=== PATIENT | female | born 1945 | race Caucasian/White ===

== ENCOUNTER 2016-10-15 19:42 | Outpatient (CLI) | END 2016-10-15 19:43 | LOC: AMBL 19:42 | PROVIDERS: ATTEND Internal Medicine Geriatric Medicine | DX: R25.1 Tremor, unspecified (principal); R00.0 Tachycardia, unspecified; I49.3 Ventricular premature depolarization; R03.0 Elevated blood-pressure reading, without diagnosis of hypertension; I63.9 Cerebral infarction, unspecified ==

== ENCOUNTER 2016-11-07 11:00 | Outpatient (RCR) ==
--- NOTE | 2016-10-27 17:47 | RS.OTEVAL ---
Subjective Date of Note: 10/27/16 Visit #: 1 Date of Evaluation: 10/27/16 Payer Source: MEDICARE Surgery Performed?: No Treatment Diagnosis: Left side weakness and impaired coordination Treatment Side (optional): Left *Precautions: At risk for falls Prior Level of Function.....Patient was independent with: ADL's, Self Care, Work /Vocation, Caregiving, Ambulation/Mobility, Community Integration/Access History of Condition/Mechanism of Injury: On 2016, pt fell backwards out of the kitchen chair and hit her head. Pt was okay she thought and was working at the [employer], and her left hand began to be difficult and then the left leg as well. Pt reports she went to the ER and was told she has a brain bleed that is absorbing. Pt reports she then was put in ICU for 3-4 days and lost her coordination of the left side. Pt reports she received therapy in the hospital for decreased balance. A week ago last Monday, she had a seizure and was hospitalized for 4 more days. Pt's BP is good not. She does not have headaches since she came home on Monday. Pt goes to see Dr. Shah for the hole in her retina which was found before her fall. Pt reports she does seem to have increased agitation with loud noises and has increased sensitivity since the fall. Level of Function: Pt is not able to drive at this time. Pt has impaired coordination and proprioception of the Left Upper extremity and the Left foot. Pt has difficulty carrying things, picking up objects and holding them. Functional Limitations: Self Care, ADL's, Reaching, Lifting, Carrying, Standing , Bending, Ambulation Current Complaints/Gains: Impaired coordination of LUE. Impaired proprioception of LUE. Pt has difficulty holding on to items once she picks them up. Pt has to use her vision to compensate for impaired proprioception. Medical History Medical History: Hypertension Medical History Comments:: Brain bleed from a fall. Diagnostic Testing/Imaging:: CT on 10/26/16, and next CT on 11/16/16. Patient's Goals: To get use of her hand and foot again and return to PLOF. Pain Assessment - Pain Description Pain Location: N/A Other comments regarding pain:: no pain Functional Outcome Measures UE Functional Index: 50 - G Codes & Severity Modifier G Codes: Current G code for Carrying, moving, and handling is 50% or CK. G code Goal is CH Source of G Code score: Carrying, Moving, and Handling Observation - Observation Posture: Normal, Forward Head Handedness: Right Shoulder ROM: Bilaterally WFL's Shoulder Muscle Strength: Right WFL's - Left Shoulder ROM Left Shoulder ROM Limitations: Muscle Weakness - Left Shoulder Strength Left Shoulder Flexion: 4- Good- Left Shoulder Extension: 4- Good- Left Shoulder Abduction: 4- Good- Left Shoulder Adduction: 4- Good- Left Shoulder External Rotation: 4- Good- Left Shoulder Internal Rotation: 4- Good- - Right Shoulder Strength Right Shoulder Flexion: 4+ Good + Right Shoulder Extension: 4+ Good + Right Shoulder Abduction: 4+ Good + Right Shoulder Adduction: 4+ Good + Right Shoulder External Rotation: 4+ Good + Right Shoulder Internal Rotation: 4+ Good + - Special Tests Shoulder Drop Arm Test: Negative Left, Negative Right Elbow ROM: Bilaterally WFL's Elbow Muscle Strength: Right WFL's - Left Elbow Strength Left Elbow Extension: 4- Good- Left Elbow Flexion: 4- Good- Left Forearm Pronation: 4- Good- Left Forearm Supination: 4- Good- - Right Elbow Strength Right Elbow Extension: 4+ Good + Right Elbow Flexion: 4+ Good + Right Forearm Pronation: 4+ Good + Right Forearm Supination: 4+ Good + Wrist ROM: Bilaterally WFL's Wrist Muscle Strength: Right WFL's - Left Wrist Strength Left Wrist Extension: 4- Good- Left Wrist Flexion: 4- Good- Left Wrist Radial Deviation: 4- Good- Left Wrist Ulnar Deviation: 4- Good- Left Forearm Pronation: 4- Good- Left Forearm Supination: 4- Good- - Customer Engagement Analyst Strength Left Customer Engagement Analyst Strength: 35 Right Customer Engagement Analyst Strength: 50 Customer Engagement Analyst Strength Left Hand Customer Engagement Analyst Strength: 35 Right Hand Customer Engagement Analyst Strength: 50 Dynamometer Testing Position: 2nd Position Palpation Palpation Findings: None/Normal Sensation Right Upper Extremity: Intact/Normal Right Lower Extremity: Intact/Normal Left Upper Extremity: Intact/Normal Left Lower Extremity: Intact/Normal Sensation Description: Within Normal Limits Comments: Pt reports she has Hightened sensitivity to noises and she gets agitated quicker. Interventions - Exercise/Activities Exercise/Activities/Manual Therapy: Pt was educated regarding putting a weight on her wrist to increase the proprioception and coordination of her LUE., Exercises included: large claps, straight arm circles, and nestling coins in the LUE. - Objective Findings Objective Findings:: LUE impaired proprioception and coordination. - Charges Total Direct Minutes: 70 Total Treatment Time: 20 Procedures billed for this date of service:: Viridiana Cunningham, Exercise Assessment Assessment: Pt requires skilled OT to increase the proprioception and coordination of the LUE. Rehab Potential: Good Problems/Comments: drops items after she picks them up. Pt has difficulty picking up items. Pt does not always know where her arm is located. She reports it does not feel like her arm. Short Term Goals Goal #1: Pt to increase LUE coordination by 50% to be able to complete sobriety chek Goal to be met by: 11/10/16 Goal #2: Pt to increase LUE strength to 4/5 to increase activity tolerance. Goal to be met by: 11/10/16 Goal #3: Pt to increase proprioception of LUE 50% to complete digit abd/add. Goal to be met by: 11/10/16 Goal #4: Pt to increase isolated digit movements to increase ability to nestle coins Goal to be met by: 11/10/16 Penitentiary Goals Goal #1: Pt to increase proprioception of LUE to be intact. Goal to be met by: 12/01/16 Goal #2: Pt to increase coordination of LUE to be intact. Goal to be met by: 12/01/16 Goal #3: Pt to increase LUE strength to 4+/5 to increase activity tolerance. Goal to be met by: 12/01/16 Goal #4: Pt to increase fine motor coordination of LUE to be intact Goal to be met by: 12/01/16 Plan - Treatment to be provided Procedures: Therapeutic Exercises, Therapeutic Activity, Neuromuscular Rehab, Patient Education Modalities: Electrical Stimulation - Treatment Plan Frequency: 3 X week Duration: 3 weeks ORDER # VISITS AND/OR THROUGH DATE: 12/01/16 - Treatment Code (1) LUE weakness Code(s): M62.81 - MUSCLE WEAKNESS (GENERALIZED) Comments: R29.898 for LUE weakness (2) Coordination abnormal Code(s): R27.8 - OTHER LACK OF COORDINATION Comments: R27.8 impaired coordination
--- NOTE | 2016-10-31 11:28 | RS.OPPTEV2 ---
Date of Note: 10/27/16 Visit #: 1 Date of Evaluation: 10/27/16 Payer Source: MEDICARE Treatment Diagnosis: Gait abnormality, left LE weakness, decreased coordination History of Condition/Mechanism of Injury:: Patient reports on 10/03/16, she fell backwards in a chair and hit her head in the kitchen. States she felt OK and even went on to work. She works at an [employer] company. States she noticed problems with use of the left hand while typing at work. Reports also noticing increased problems with the left LE. She went to the ER and was told she had a brain bleed. She was admitted to ICU for 3-4 days. States after getting back home, she then had a seizure and was readmitted to the hospital for another 4 days. She has now been out of the hospital for approximately a week. Prior Level of Function.....Patient was independent with: ADL's, Self Care, Work /Vocation, Caregiving, Ambulation/Mobility, Community Integration/Access Level of Function: Unable to drive at this time due to recent seizure. Functional Limitations: Standing, Ambulation, Community Access/Integration Current Subjective/complaints:: Patient reports she feels her balance is off. She is ambulating with a straight cane for long distances outside the home. States inside her home, she does not use an assistive device. She has stairs at home, but does not have to use them. States she has not fallen since being home from the hospital, but has had a few close calls. States she was told to avoid bending over. Reports she had been bending over, cleaning out her refrigerator the day she had the seizure. She has avoided bending over since then. States she has gotten up out of a chair and not realized that she had her left foot behind the front leg of the chair, and nearly fell. Reports no problems with speech or swallowing. Denies pain or swelling in the left arm or leg. She feels like she has more problems with the left UE than she does the right. States she is determined to get full recovery of her symptoms and plans to return to work as soon as possible. Treatment Side (optional): Left *Precautions: At risk for falls Medical History Medical History: Hypertension, CVA/TIA Surgical History: Cholecystectomy, Hysterectomy Smoking Status: Never smoker Diagnostic Testing/Imaging:: CT on 10/26/[address] scheduled for 11/16/16. Hx Home Medications: Lipitor, Lexapro,glucosamine,HCTZ, Avapro, Prevacid, Keppra , potassium chloride, vitamin B-12 Patient's Goals: Her goal is to fully recover from her symptoms and return to her previous level of activity at home and work. Functional Outcome Measure LE Functional Scale: 36 (36/80=55% impairment) Tinetti: 19 - G Codes & Severity Modifier G Codes & Modifier: Mobility current CK. Mobility goal CI Source of G Code score: LE functional scale Gait - Gait Pattern Gait Comments: Patient ambulates with a straight cane in her right hand. She does not consistently touch the cane to the ground while ambulating. She demonstrates decreased stance on the left LE. Demonstrates slightly less heelstrike and push off of the left LE. She clears her left foot consistently, but does demonstrates less hip and knee flexion on the left. Patient veers slightly from a straight path. General Range of Motion: AROM is WFL's throughout bilateral LE's. Muscle Strength: Left hip flexion, abduction, and IR/ER 4/5. All else of left hip 4+/5. Left quad and HS strength 4 to 4+/5. Left ankle 4+/5 throughout. Trunk strength 4 to 4+/5. Sensation - Sensation Right Lower Extremity: Intact/Normal Left Lower Extremity: Intact/Normal Comments: Proprioception at hip, knee, and ankle intact bilaterally. Balance - Sitting Balance Static Sitting Balance: Good Dynamic Sitting Balance: Good - Standing Balance Static Standing Balance: Good Dynamic Standing Balance: Fair (+) - Comments Balance Assessment Comments: Patient assessed on [employer] Balance System. Postural Stability Training: patient demonstrates ability to maintain static balance. She exhibits distribution of weight more to her right side during duration of assessment. Limits of Stability Training: Patient scores 15 % on moderate skill level in a time of 98 seconds. She exhibits rotation of the body to her left when trying to hit the targets on the left side of the screen and demonstrates more time and concentration to reach those targets. Coordination - Tests Left Heel to Diop: Mild Deviation Toe Tapping: Mild Deviation Comments: Mild dysmetria noted with increased speed of Heel to diop test. Additional Comments: Additional Comments: Bed mobility on treatment table is independent. Transfers sit to stand and stand to sit independently. Interventions - Exercise/Activities/Manual Therapy Exercises/Activities: Patient instructed in strengthening exercises for the left LE: SLR, bridging, hip abd/adduction. 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 Patient presents with reports of decreased balance and decreased confidence with ambulation. She exhibits weakness in the left LE, especially the hip, and decreased coordination. Also may be exhibiting decreased awareness of the left LE from her subjective reports. She scores to be 55% impaired per self scored LE functional scale and 19/28 on Tinetti, putting at risk for falls. She demonstrates good potential to regain strength and coordination to return to her previous level of function and improve her safety with all mobility. Patient Education: Education of diagnosis, Body/Joint mechanics, Home Exercise Program, Home Safety, Activity Modification, Education of Plan of Care Rehab Potential: Good Short Term Goals Goal #1: Left hip strength 4+/5. Goal to be met by: 11/11/16 Goal #2: Score on Limits of Stability Training improved to 40% at mod. skill level. Goal to be met by: 11/11/16 Goal #3: Pt will demonstrate no obvious coordination impairment of left LE. Goal to be met by: 11/11/16 Mc[facility] Goals Goal #1: Pt knows HEP and to continue ex's to gain further progress towards goals. Goal to be met by: 12/17/16 Goal #2: Score on LE functional scale improved to 56/80. Goal to be met by: 12/17/16 Goal #3: Score on Tinetti Assessment improved to 26/28. Goal to be met by: 12/17/16 Goal #4: Pt to ambulate w/o assist device with minimal gait deviation. Goal to be met by: 12/17/16 Plan - Treatment to be Provided Procedures: Therapeutic Exercises, Therapeutic Activity, Neuromuscular Rehab, Vestibular Rehab, Patient Education Modalities: No Modalities - Treatment Plan Frequency: 2-3 X week Duration: 6 weeks ORDER # VISITS AND/OR THROUGH DATE: 12/17/16 - Treatment Code (1) Weakness of left leg Code(s): R29.898 - OTH SYMPTOMS AND SIGNS INVOLVING THE MUSCULOSKELETAL SYSTEM Comments: R29.898 (2) Coordination impairment Code(s): R27.8 - OTHER LACK OF COORDINATION Comments: R27.8 (3) Gait abnormality Code(s): R26.9 - UNSPECIFIED ABNORMALITIES OF GAIT AND MOBILITY Comments: R26.9
--- NOTE | 2016-10-31 14:35 | RS.OPPTDN ---
Subjective Date of Note: 10/31/16 Visit #: 2 Date of Evaluation: 10/27/16 Payer Source: MEDICARE Treatment Diagnosis: Gait abnormality, left LE weakness, decreased coordination Current Subjective/complaints:: Reports strength and balance are improving. Patient states she is working on HEP as instructed. States she is now going without cane. *Precautions: At risk for falls Interventions - Exercise/Activities/Manual Therapy Exercises/Activities: Progressed mat exercises with 2# for SLR and 3# with SAQ, 2s/10reps each. Red theraband for hip add and abd, 2s/10reps. Green theraband for df, inv, and eversion, 2s/10reps each. Bridging. In sitting, ankle pumps and hip flexion. In standing, toe-ups, marching, side-stepping, grapevine, and high stepping. Uni-lateral stanidng. Reviewed safety with walking. Total minutes of Exercise: EX 30mins, NEURO 10mins Manual Therapy: NA HOME EXERCISE PROGRAM: SLR, bridging, hip abd/adduction, ankle pumps. In standing at kitchen counter, toe-ups, marching, side-stepping, grapevine, and uni-lateral standing. - Charges Total Direct Minutes: 40mins Total Treatment Time: 40mins Procedures billed for this date of service:: EX2, NEURO Assessment: Patient attentive to all instruction and motivated to progress. Patient Education: Home Exercise Program, Home Safety Comments: Reviewed HEP and patient given copies of new exercises. Patient demonstrates compliance with HEP?: Yes Short Term Goals Goal #1: Left hip strength 4+/5. Goal to be met by: 11/11/16 Progress towards Goal:: Progressing Goal #2: Score on Limits of Stability Training improved to 40% at mod. skill level. Goal to be met by: 11/11/16 Goal #3: Pt will demonstrate no obvious coordination impairment of left LE. Goal to be met by: 11/11/16 Progress towards Goal:: Progressing [facility] Goals Goal #1: Pt knows HEP and to continue ex's to gain further progress towards goals. Goal to be met by: 12/17/16 Goal #2: Score on LE functional scale improved to 56/80. Goal to be met by: 12/17/16 Goal #3: Score on Tinetti Assessment improved to 26/28. Goal to be met by: 12/17/16 Goal #4: Pt to ambulate w/o assist device with minimal gait deviation. Goal to be met by: 12/17/16 Progress towards goal: Progressing (Patient going without cane today) Plan PLAN OF CARE EXPIRES ON:: 12/17/16 ORDER # VISITS AND/OR THROUGH DATE: 12/17/16 PLAN: Progress Exercises (Progress strengthening and balance activity to return patient to PLOF.)
--- NOTE | 2016-11-01 15:29 | RS.OTDNOTE ---
Subjective Date of Note: 10/31/16 Visit #: 2 Date of Evaluation: 10/27/16 Payer Source: MEDICARE Surgery Performed?: No Treatment Diagnosis: Left side weakness and impaired coordination Treatment Side (optional): Left *Precautions: At risk for falls Prior Level of Function.....Patient was independent with: ADL's, Self Care, Work /Vocation, Caregiving, Ambulation/Mobility, Community Integration/Access History of Condition/Mechanism of Injury: On 2016, pt fell backwards out of the kitchen chair and hit her head. Pt was okay she thought and was working at the [employer], and her left hand began to be difficult and then the left leg as well. Pt reports she went to the ER and was told she has a brain bleed that is absorbing. Pt reports she then was put in ICU for 3-4 days and lost her coordination of the left side. Pt reports she received therapy in the hospital for decreased balance. A week ago last Monday, she had a seizure and was hospitalized for 4 more days. Pt's BP is good not. She does not have headaches since she came home on Monday. Pt goes to see Dr. Shah for the hole in her retina which was found before her fall. Pt reports she does seem to have increased agitation with loud noises and has increased sensitivity since the fall. Level of Function: Pt is not able to drive at this time. Pt has impaired coordination and proprioception of the Left Upper extremity and the Left foot. Pt has difficulty carrying things, picking up objects and holding them. Functional Limitations: Self Care, ADL's, Reaching, Lifting, Carrying, Standing , Bending, Ambulation Current Complaints/Gains: Pt states good compliance with HEP instructions. States she has been utilizing a wrist weight for proprioception and has c/o wrist pain. States she is improving with her coordination and has been able to utilize a curling iron and was able to peel potatoes yesterday. Pain Assessment - Pain Description Pain Description: Dull, Aching Current Pain Intensity: 2 Worst Pain Intensity: 3-4 Other comments regarding pain:: Wrist pain only Interventions - Exercise/Activities Exercise/Activities/Manual Therapy: Proprioception activities, TE, and FMC/GMC act performed including ball on the wall, large/small circles, large claps/ finger to nose, gradded digi-flex, nut-bolt set, and 3# hand weight along with dyn standing balance with 1-2 handed activity performed. - Objective Findings Objective Findings:: LUE impaired proprioception and coordination. - Charges Total Direct Minutes: 50 Total Treatment Time: 50 Procedures billed for this date of service:: ACT3 Assessment Patient Education: Education of diagnosis, Body/Joint mechanics, Home Exercise Program, Home Safety, Activity Modification, Education of Plan of Care Patient demonstrates compliance with HEP?: Yes Short Term Goals Goal #1: Pt to increase LUE coordination by 50% to be able to complete sobriety chek Goal to be met by: 11/10/16 Progress towards goal: Met Goal #2: Pt to increase LUE strength to 4/5 to increase activity tolerance. Goal to be met by: 11/10/16 Progress towards goal: Met Goal #3: Pt to increase proprioception of LUE 50% to complete digit abd/add. Goal to be met by: 11/10/16 Progress towards goal: Met Goal #4: Pt to increase isolated digit movements to increase ability to nestle coins Goal to be met by: 11/10/16 Progress towards goal: Met Refund Specialist Goals Goal #1: Pt to increase proprioception of LUE to be intact. Goal to be met by: 12/01/16 Progress towards goal: Partially Met Goal #2: Pt to increase coordination of LUE to be intact. Goal to be met by: 12/01/16 Progress towards goal: Partially Met Goal #3: Pt to increase LUE strength to 4+/5 to increase activity tolerance. Goal to be met by: 12/01/16 Progress towards goal: Progressing Goal #4: Pt to increase fine motor coordination of LUE to be intact Goal to be met by: 12/01/16 Progress towards goal: Partially Met Plan PLAN OF CARE EXPIRES ON:: 12/01/16 ORDER # VISITS AND/OR THROUGH DATE: 12/01/16 PLAN: Continue Plan of Care Frequency: 3 X week Duration: 4 weeks (Pt demo great rehab potential and demo great improvement since eval on 10-27)
--- NOTE | 2016-11-02 11:20 | RS.OTDNOTE ---
Subjective Date of Note: 11/02/16 Visit #: 3 Date of Evaluation: 10/27/16 Payer Source: MEDICARE Surgery Performed?: No Treatment Diagnosis: Left side weakness and impaired coordination Treatment Side (optional): Left *Precautions: At risk for falls Prior Level of Function.....Patient was independent with: ADL's, Self Care, Work /Vocation, Caregiving, Ambulation/Mobility, Community Integration/Access History of Condition/Mechanism of Injury: On 2016, pt fell backwards out of the kitchen chair and hit her head. Pt was okay she thought and was working at the [employer], and her left hand began to be difficult and then the left leg as well. Pt reports she went to the ER and was told she has a brain bleed that is absorbing. Pt reports she then was put in ICU for 3-4 days and lost her coordination of the left side. Pt reports she received therapy in the hospital for decreased balance. A week ago last Monday, she had a seizure and was hospitalized for 4 more days. Pt's BP is good not. She does not have headaches since she came home on Monday. Pt goes to see Dr. Shah for the hole in her retina which was found before her fall. Pt reports she does seem to have increased agitation with loud noises and has increased sensitivity since the fall. Level of Function: Pt is not able to drive at this time. Pt has impaired coordination and proprioception of the Left Upper extremity and the Left foot. Pt has difficulty carrying things, picking up objects and holding them. Functional Limitations: Self Care, ADL's, Reaching, Lifting, Carrying, Standing , Bending, Ambulation Current Complaints/Gains: Pt continues stating improvement with GS, B hand and coordiantion use. states she is sitting during her showers for safety but is I with getting in/out and perfoming all washing/dressing tasks. Also states she is walking without the use of a cane now and feels steady. Pain Assessment - Pain Description Pain Description: Dull, Aching Current Pain Intensity: 1 Worst Pain Intensity: 1 Interventions - Exercise/Activities Exercise/Activities/Manual Therapy: Proprioception activities, TE, and FMC/GMC act performed including ball on the wall, large/small circles, large claps/ finger to nose, gradded digi-flex, nut-bolt set(small), and 3# hand weight along with dyn standing balance with 1-2 handed activity performed. Red/green t -putty utilized. - Objective Findings Objective Findings:: LUE impaired proprioception and coordination. - Charges Total Direct Minutes: 32 Total Treatment Time: 32 Procedures billed for this date of service:: Act2 Assessment Patient Education: Home Exercise Program Patient demonstrates compliance with HEP?: Yes Short Term Goals Goal #1: Pt to increase LUE coordination by 50% to be able to complete sobriety chek Goal to be met by: 11/10/16 Progress towards goal: Met Goal #2: Pt to increase LUE strength to 4/5 to increase activity tolerance. Goal to be met by: 11/10/16 Progress towards goal: Met Goal #3: Pt to increase proprioception of LUE 50% to complete digit abd/add. Goal to be met by: 11/10/16 Progress towards goal: Met Goal #4: Pt to increase isolated digit movements to increase ability to nestle coins Goal to be met by: 11/10/16 Progress towards goal: Met Intermediate Goals Goal #1: Pt to increase proprioception of LUE to be intact. Goal to be met by: 12/01/16 Progress towards goal: Partially Met Goal #2: Pt to increase coordination of LUE to be intact. Goal to be met by: 12/01/16 Progress towards goal: Partially Met Goal #3: Pt to increase LUE strength to 4+/5 to increase activity tolerance. Goal to be met by: 12/01/16 Progress towards goal: Partially Met Goal #4: Pt to increase fine motor coordination of LUE to be intact Goal to be met by: 12/01/16 Progress towards goal: Partially Met Plan PLAN OF CARE EXPIRES ON:: 12/01/16 ORDER # VISITS AND/OR THROUGH DATE: 12/01/16 PLAN: Continue Plan of Care Frequency: 3 X week Duration: 2 weeks
--- NOTE | 2016-11-02 13:23 | RS.OPPTDN ---
Subjective Date of Note: 11/02/16 Visit #: 3 Date of Evaluation: 10/27/16 Payer Source: MEDICARE Treatment Diagnosis: Gait abnormality, left LE weakness, decreased coordination Current Subjective/complaints:: Patient says she is pleased with how well she is doing so far. Reports that she is performing HEP and asks how to perform DF with tbands. Rhonda denies any BETANCUR's, LOB, or dizziness. She says she is really eager to return to work, but will probably return 2-3 days a week and only half days. *Precautions: At risk for falls Pain Assessment - Pain Description Pain Location: none voiced Interventions - Exercise/Activities/Manual Therapy Exercises/Activities: Progressed mat exercises with 2# for SLR and 3# with SAQ, 2s/10reps each. Red theraband for hip add and abd, 2s/10reps. Green theraband for df, inv, and eversion, 2s/10reps each. Bridging. Hip flexion with 2#, hip flexion with SLR, QS, ham curls with green tband, LE lift (bilaterally with ball between knees). In sitting, ankle pumps and hip flexion. In standing, toe- ups, marching, side-stepping, grapevine. Uni-lateral standng. R hip standing abd for WB on L. Forward step ups just to extend on the L knee using step board , alternate step ups using R leading, then leading with L. Reviewed safety with walking and instructed on DF with tband for home. Total minutes of Exercise: 27ex, 10 neuro Manual Therapy: NA HOME EXERCISE PROGRAM: SLR, bridging, hip abd/adduction, ankle pumps. In standing at kitchen counter, toe-ups, marching, side-stepping, grapevine, and uni-lateral standing. - Charges Total Direct Minutes: 37 Total Treatment Time: 37 Procedures billed for this date of service:: neuro1, ex2 Assessment: Patient progressing well with all therex and gait. She is ambulating in the community independently without her cane and able to perform dynamic exercises in department. She is able to maintain bal with standing therex and no LOB or unsteadiness with transfers. Patient became somewhat unsteady with step board (leaning to the R) only due to patient misunderstanding cues. Patient Education: Education of diagnosis, Body/Joint mechanics, Home Exercise Program, Home Safety, Activity Modification, Education of Plan of Care Patient demonstrates compliance with HEP?: Yes Short Term Goals Goal #1: Left hip strength 4+/5. Goal to be met by: 11/11/16 Progress towards Goal:: Progressing Goal #2: Score on Limits of Stability Training improved to 40% at mod. skill level. Goal to be met by: 11/11/16 Comments:: Will recheck at next appt Goal #3: Pt will demonstrate no obvious coordination impairment of left LE. Goal to be met by: 11/11/16 Progress towards Goal:: Progressing Mirror Painter Goals Goal #1: Pt knows HEP and to continue ex's to gain further progress towards goals. Goal to be met by: 12/17/16 Goal #2: Score on LE functional scale improved to 56/80. Goal to be met by: 12/17/16 Goal #3: Score on Tinetti Assessment improved to 26/28. Goal to be met by: 12/17/16 Goal #4: Pt to ambulate w/o assist device with minimal gait deviation. Goal to be met by: 12/17/16 Progress towards goal: Progressing (Patient going without cane today) Plan PLAN OF CARE EXPIRES ON:: 12/17/16 ORDER # VISITS AND/OR THROUGH DATE: 12/17/16 PLAN: Progress Exercises
--- NOTE | 2016-11-04 13:56 | RS.OTDNOTE ---
Subjective Date of Note: 11/04/16 Visit #: 4 Date of Evaluation: 10/27/16 Payer Source: MEDICARE Surgery Performed?: No Treatment Diagnosis: Left side weakness and impaired coordination Treatment Side (optional): Left *Precautions: At risk for falls Prior Level of Function.....Patient was independent with: ADL's, Self Care, Work /Vocation, Caregiving, Ambulation/Mobility, Community Integration/Access History of Condition/Mechanism of Injury: On 2016, pt fell backwards out of the kitchen chair and hit her head. Pt was okay she thought and was working at the [employer], and her left hand began to be difficult and then the left leg as well. Pt reports she went to the ER and was told she has a brain bleed that is absorbing. Pt reports she then was put in ICU for 3-4 days and lost her coordination of the left side. Pt reports she received therapy in the hospital for decreased balance. A week ago last Monday, she had a seizure and was hospitalized for 4 more days. Pt's BP is good not. She does not have headaches since she came home on Monday. Pt goes to see Dr. Shah for the hole in her retina which was found before her fall. Pt reports she does seem to have increased agitation with loud noises and has increased sensitivity since the fall. Level of Function: Pt is not able to drive at this time. Pt has impaired coordination and proprioception of the Left Upper extremity and the Left foot. Pt has difficulty carrying things, picking up objects and holding them. Current Complaints/Gains: Pt states she feels she can continue her HEP I and is agreeable to DC this date. States she is able to perform all home demetra, ADL's, and work related functions and plans to return to work 2-3 days a wk. Pain Assessment - Pain Description Pain Description: Dull, Aching Pain Location: N/A Interventions - Exercise/Activities Exercise/Activities/Manual Therapy: C/C activities, 4# hand weight and gradded digi-flex/thera putty for hand strengtheing. - Objective Findings Objective Findings:: LUE impaired proprioception and coordination. - Charges Total Direct Minutes: 28 Total Treatment Time: 28 Procedures billed for this date of service:: ACT2 Assessment Patient Education: Education of diagnosis, Body/Joint mechanics, Home Exercise Program, Home Safety, Activity Modification, Education of Plan of Care Patient demonstrates compliance with HEP?: Yes Short Term Goals Goal #1: Pt to increase LUE coordination by 50% to be able to complete sobriety chek Goal to be met by: 11/10/16 Progress towards goal: Met Goal #2: Pt to increase LUE strength to 4/5 to increase activity tolerance. Goal to be met by: 11/10/16 Progress towards goal: Met Goal #3: Pt to increase proprioception of LUE 50% to complete digit abd/add. Goal to be met by: 11/10/16 Progress towards goal: Met Goal #4: Pt to increase isolated digit movements to increase ability to nestle coins Goal to be met by: 11/10/16 Progress towards goal: Met Estate Planning Counselor Goals Goal #1: Pt to increase proprioception of LUE to be intact. Goal to be met by: 12/01/16 Progress towards goal: Met Goal #2: Pt to increase coordination of LUE to be intact. Goal to be met by: 12/01/16 Progress towards goal: Met Goal #3: Pt to increase LUE strength to 4+/5 to increase activity tolerance. Goal to be met by: 12/01/16 Progress towards goal: Met Goal #4: Pt to increase fine motor coordination of LUE to be intact Goal to be met by: 12/01/16 Progress towards goal: Met Plan PLAN OF CARE EXPIRES ON:: 12/01/16 ORDER # VISITS AND/OR THROUGH DATE: 12/01/16 Frequency: DC Duration: DC
--- NOTE | 2016-11-07 13:08 | RS.OPPTDN ---
Subjective Date of Note: 11/04/16 Visit #: 4 Date of Evaluation: 10/27/16 Payer Source: MEDICARE Treatment Diagnosis: Gait abnormality, left LE weakness, decreased coordination Current Subjective/complaints:: Patient says she is doing well and will probably only come twice next week, then discharge *Precautions: At risk for falls Pain Assessment - Pain Description Pain Location: none voiced Interventions - Exercise/Activities/Manual Therapy Exercises/Activities: Progressed mat exercises with 2# for SLR and 3# with SAQ, 2s/10reps each. Red theraband for hip add and abd, 2s/10reps. Green theraband for df, inv, and eversion, 2s/10reps each. Bridging. Hip flexion with 2#, hip flexion with SLR, QS, ham curls with green tband, LE lift (bilaterally with ball between knees). In sitting, ankle pumps and hip flexion. In standing, toe- ups, marching, side-stepping, grapevine. Uni-lateral standng. R hip standing abd for WB on L. Forward step ups just to extend on the L knee using step board , alternate step ups using R leading, then leading with L. Reviewed safety with walking and instructed on DF with tband for home. Total minutes of Exercise: 40 Manual Therapy: NA HOME EXERCISE PROGRAM: SLR, bridging, hip abd/adduction, ankle pumps. In standing at kitchen counter, toe-ups, marching, side-stepping, grapevine, and uni-lateral standing. - Charges Total Direct Minutes: 40 Total Treatment Time: 40 Procedures billed for this date of service:: ex2, neuro Assessment: Patient does not show any sign of LoB and able to progress with all therex. She has decided to perform all therex at home and come twice next week since she is doing well with HEP and denies falls at this point. Patient demonstrates compliance with HEP?: Yes Short Term Goals Goal #1: Left hip strength 4+/5. Goal to be met by: 11/11/16 Progress towards Goal:: Progressing Goal #2: Score on Limits of Stability Training improved to 40% at mod. skill level. Goal to be met by: 11/11/16 Goal #3: Pt will demonstrate no obvious coordination impairment of left LE. Goal to be met by: 11/11/16 Progress towards Goal:: Progressing Skilled Nursing Goals Goal #1: Pt knows HEP and to continue ex's to gain further progress towards goals. Goal to be met by: 12/17/16 Goal #2: Score on LE functional scale improved to 56/80. Goal to be met by: 12/17/16 Goal #3: Score on Tinetti Assessment improved to 26/28. Goal to be met by: 12/17/16 Goal #4: Pt to ambulate w/o assist device with minimal gait deviation. Goal to be met by: 12/17/16 Progress towards goal: Progressing (Patient going without cane today) Plan PLAN OF CARE EXPIRES ON:: 12/17/16 ORDER # VISITS AND/OR THROUGH DATE: 12/17/16 PLAN: Plan for Discharge (1-2 times next week)
--- NOTE | 2016-11-07 15:32 | RS.CSNOTE ---
PT Case Note Date of Note: 11/07/16 Title of document: Discharge Note: Patient presents to department today stating she has progressed well and does not feel like she needs to continue therapy. States her balance is good, she id performing most light to mod ADL's, and is working with spouse on HEP. Reassessment of Tinetti to 27 and LE FOM to 56/80 or 30% impairment. She was given additional copies of HEP. Discharge at patient request due to good progress.
--- NOTE | 2016-11-09 14:31 | RS.OTQKDC ---
OT Discharge Date of Discharge: 11/04/16 Number of Visits: 4 Reason for Discharge: Patient met her STG's and LTG's. Pt is able to type, curl her hair, peel potatoes. Pt plans to return to work next week. 2-3 days a week. Performs HEP Independently. Pt reports "Really, I can do anything.". G Codes: At evaluation G code was a CM. G code goal was CH. Pt discharged at with 1- 19% impairment. Pt wanted to stop and go back to work.
== END 2016-11-19 ==
PROVIDERS: ATTEND Neurological Surgery
DX: R26.9 Unspecified abnormalities of gait and mobility (principal)

== ENCOUNTER 2017-08-08 15:06 | Outpatient (CLI) ==
--- NOTE | 2017-08-08 15:43 | DI ---
EXAM: Three views of the left shoulder. History: Left shoulder pain. Findings: No acute fracture or dislocation. Mild narrowing of the left AC joint and left glenohumer al joint. No abnormal calcifications or radiopaque foreign bodies. Impression: 1. No acute osseous abnormality. 2. Mild arthritis
== END 2017-08-08 15:07 | disposition home or self-care (01) ==
LOC: RAD 15:06
PROVIDERS: ATTEND Family Medicine
DX: M25.512 Pain in left shoulder (principal)

== ENCOUNTER 2018-05-03 15:00 | Outpatient (RCR) ==
--- NOTE | 2018-04-23 08:51 | RS.OPPTEV2 ---
Date of Note: 04/20/18 Visit #: 1 Number of visits approved by Insurance: n/a Date of Evaluation: 04/20/18 Payer Source: MEDICARE Surgery Performed?: Yes (Rotator cuff repair 03/02/18) Treatment Diagnosis: s/p rotator cuff repair, pain in L shld History of Condition/Mechanism of Injury:: pt reports she has had L shld pain since CVA in 09/2016. She underwent L rotator cuff repair 03/02/18. Prior Level of Function.....Patient was independent with: ADL's, Self Care, Work /Vocation (works for [employer]. ), Caregiving, Ambulation/Mobility, Community Integration/Access Level of Function: pt is independent with amb and ADL's and works adjunct faculty mathematics department. Functional Limitations: Reaching, Pushing, Pulling, Lifting, Carrying Current Subjective/complaints:: pt reports she is not having much pain, reports after surgery she immediatly had decreased pain. She states they help her pull files at work, otherwise she is able to perform all normal work duties. Treatment Side (optional): Left *Precautions: n/a Medical History Medical History: Hypertension, CVA/TIA (09/2016) Medical History Comments:: Brain bleed from a fall. Surgical History: Cholecystectomy, Hysterectomy Surgical History Comments:: hernia repair, Smoking Status: Never smoker Hx Home Medications: pt did not bring list of meds this visit Patient's Goals: get L shld stronger Pain Assessment - Pain Description Pain Location: L shld Pain Description: Aching Current Pain Intensity: 2/10 Functional Outcome Measure UE Functional Index: 48 (40%) - G Codes & Severity Modifier G Codes & Modifier: n/a Source of G Code score: n/a Observation - Observation Posture: Forward Head, Rounded Shoulders, Increased Thoracic Kyphosis Handedness: Right Gait - Gait Pattern General Gait Pattern Observation: No Deviations/Normal General Range of Motion: RUE WFL's. BLE WFL's Muscle Strength: RUE 5/5. BLE 5/5 Shoulder ROM: Right WFL's Shoulder Muscle Strength: Right WFL's - Left Shoulder ROM Left Shoulder Flexion: 108 Left Shoulder Abduction: 87 Left Shoulder External Rotation: 32 Left Shoulder ROM Limitations: Soft Tissue Tightness, Muscle Weakness, Pain Palpation Palpation Findings: Tenderness Comments:: L shld with tenderness to palpation. Sensation - Sensation Right Upper Extremity: Intact/Normal Left Upper Extremity: Impaired (occasional numbness and tingling in LUE.) Right Lower Extremity: Intact/Normal Left Lower Extremity: Intact/Normal Balance - Sitting Balance Static Sitting Balance: Normal Dynamic Sitting Balance: Normal - Standing Balance Static Standing Balance: Normal Dynamic Standing Balance: Normal - Heat/Cryotherapy Treatment: Cryotherapy (L shld) Interventions - Exercise/Activities/Manual Therapy Exercises/Activities: pt peformed isometric shld flex, ext, abd, add, as well as AROM elbow flex/ext with arm at side. Manual Therapy: NA HOME EXERCISE PROGRAM: pt given written HEP including isometric shld flex/ext, abd/add, as well as AROM elbow flex/ext - Charges Timed Code Treatment Minutes: 51 Total Treatment Time: 56 Procedures billed for this date of service:: eval med, ex, cold pack EVALUATION COMPLEXITY LEVEL EVALUATION COMPLEXITY LEVEL: HISTORY: Medium (age, prior CVA, HTN, s/p rot cuff repair), EXAM OF BODY SYSTEMS: Medium (strength, balance, ROM, transfers, gait) , CLINICAL PRESENTATION: Medium, CLINICAL DECISION MAKING: Medium Assessment Assessment: pt presents with decreased L shld ROM and strength as well as pain s /p L rotator cuff repair. Feel pt would benefit from skilled PT for therex for shld strengthening, ROM , as well as modalities to decrease pain and inflammation. Patient Education: Home Exercise Program, Education of Plan of Care Rehab Potential: Good Short Term Goals Goal #1: pt independent with initial HEP Goal to be met by: 05/11/18 Goal #2: Improve L shld flex 110, abd90, ER 35 AAROM Goal to be met by: 05/11/18 Goal #3: Improve strength L shld 3/5 Goal to be met by: 05/11/18 Special Technical Operations Officer Goals Goal #1: Improve UE functional score 25% Goal to be met by: 06/01/18 Goal #2: Improve L shld AROM flex 140 abd 110, ER 45 Goal to be met by: 06/01/18 Goal #3: pt able to perform normal daily activities without restrictions Goal to be met by: 06/01/18 Plan - Treatment to be Provided Procedures: Therapeutic Exercises, Therapeutic Activity, Manual Therapy, Patient Education Modalities: Electrical Stimulation, Ultrasound/Phonophoresis, Cryotherapy, Hot Packs - Treatment Plan Frequency: 2-3 X week Duration: 6 weeks Dates of [facility]ci Goals: 06/01/18 Expiration date of current Insurance Approval:: n/a - Treatment Code (1) Pain in joint, shoulder region Code(s): M25.519 - PAIN IN UNSPECIFIED SHOULDER Qualifiers: Laterality: left Qualified Code(s): M25.512 - Pain in left shoulder (2) S/P left rotator cuff repair Code(s): Z98.890 - OTHER SPECIFIED POSTPROCEDURAL STATES (3) Muscle weakness Code(s): M62.81 - MUSCLE WEAKNESS (GENERALIZED) (4) Stiffness of joint, not elsewhere classified, shoulder region Code(s): M25.619 - STIFFNESS OF UNSPECIFIED SHOULDER, NOT ELSEWHERE CLASSIFIED
--- NOTE | 2018-04-24 08:42 | RS.OPPTDN ---
Subjective Date of Note: 04/23/18 Visit #: 2 Number of visits approved by Insurance: NA Date of Evaluation: 04/20/18 Payer Source: MEDICARE Treatment Diagnosis: s/p rotator cuff repair, pain in L shld Current Subjective/complaints:: Patient reports soreness left shoulder joint and upper arm. *Precautions: n/a Pain Assessment - Pain Description Pain Location: Left shoulder, upper arm Current Pain Intensity: mild to mod - Heat/Cryotherapy Treatment: Hot Pack ([id number] to the left shoulder prior to EX. Patient in sitting. ) Interventions - Exercise/Activities/Manual Therapy Exercises/Activities: PROM of the left shoulder. Manual resistance for isometric shld flex, ext, abd, add, IR, and ER. Wand for overhead flexion and chest press. In sitting, AAROM into flexion, scaption, abd, and retraction. Began cuff series. Table slides. Total minutes of Exercise: 32mins Manual Therapy: NA HOME EXERCISE PROGRAM: pt given written HEP including isometric shld flex/ext, abd/add, as well as AROM elbow flex/ext - Charges Timed Code Treatment Minutes: 52mins Total Treatment Time: 55mins Procedures billed for this date of service:: HP, EX2 Assessment: Patient reports good response to exercise. She is motivated to progress and return to PLOF. Patient Education: Education of diagnosis, Body/Joint mechanics, Home Exercise Program, Home Safety, Activity Modification Patient demonstrates compliance with HEP?: Yes Short Term Goals Goal #1: pt independent with initial HEP Goal to be met by: 05/11/18 Progress towards Goal:: Progressing Goal #2: Improve L shld flex 110, abd90, ER 35 AAROM Goal to be met by: 05/11/18 Goal #3: Improve strength L shld 3/5 Goal to be met by: 05/11/18 Building Code Inspector Goals Goal #1: Improve UE functional score 25% Goal to be met by: 06/01/18 Goal #2: Improve L shld AROM flex 140 abd 110, ER 45 Goal to be met by: 06/01/18 Goal #3: pt able to perform normal daily activities without restrictions Goal to be met by: 06/01/18 Progress towards goal: Progressing Plan Dates of Building Code Inspector Goals: 06/01/18 Expiration date of current Insurance Approval:: 06/01/18 PLAN: Progress with ROM and gentle strengthening of the left UE to increase patients functional activity level.
--- NOTE | 2018-04-25 16:21 | RS.OPPTDN ---
Subjective Date of Note: 04/25/18 Visit #: 3 Number of visits approved by Insurance: NA Date of Evaluation: 04/20/18 Payer Source: MEDICARE Treatment Diagnosis: s/p rotator cuff repair, pain in L shld Current Subjective/complaints:: Patient reports doing better each day. States she is working on HEP. *Precautions: n/a Pain Assessment - Pain Description Pain Location: left shoulder Pain Description: soreness Current Pain Intensity: mild Interventions - Exercise/Activities/Manual Therapy Exercises/Activities: PROM of the left shoulder. Manual resistance for isometric shld flex, ext, abd, add, IR, and ER. Wand for overhead flexion and chest press. Ball squeeze between hand for IR, then chest press, and isometric horz add. In sitting, AAROM into flexion, scaption, abd, and retraction. Total minutes of Exercise: 48mins Manual Therapy: NA HOME EXERCISE PROGRAM: pt given written HEP including isometric shld flex/ext, abd/add, as well as AROM elbow flex/ext - Charges Timed Code Treatment Minutes: 48mins Total Treatment Time: 48mins Procedures billed for this date of service:: EX3 Assessment: Patient progressing well with PROM and consistently working on HEP. Patient Education: Home Exercise Program Patient demonstrates compliance with HEP?: Yes Short Term Goals Goal #1: pt independent with initial HEP Goal to be met by: 05/11/18 Progress towards Goal:: Progressing Goal #2: Improve L shld flex 110, abd90, ER 35 AAROM Goal to be met by: 05/11/18 Progress towards Goal:: Progressing Goal #3: Improve strength L shld 3/5 Goal to be met by: 05/11/18 Maintenance Supervisor 2Nd Shift Goals Goal #1: Improve UE functional score 25% Goal to be met by: 06/01/18 Goal #2: Improve L shld AROM flex 140 abd 110, ER 45 Goal to be met by: 06/01/18 Goal #3: pt able to perform normal daily activities without restrictions Goal to be met by: 06/01/18 Progress towards goal: Progressing Plan Dates of Detention Goals: 06/01/18 Expiration date of current Insurance Approval:: 06/01/18 PLAN: Progress with ROM and strengthening to increase functional activity level.
--- NOTE | 2018-04-26 16:23 | RS.OPPTDN ---
Subjective Date of Note: 04/26/18 Visit #: 4 Number of visits approved by Insurance: NA Date of Evaluation: 04/20/18 Payer Source: MEDICARE Treatment Diagnosis: s/p rotator cuff repair, pain in L shld Current Subjective/complaints:: Patient reports she feels she is improving each day. States she is cautious with daily activities but is doing limited reaching activities. *Precautions: n/a Pain Assessment - Pain Description Pain Location: left shoulder Pain Description: Tightness Pain Description: soreness Current Pain Intensity: mild - Heat/Cryotherapy Treatment: Hot Pack ([id number] to the left shoulder prior to EX. patient in supine. ) Interventions - Exercise/Activities/Manual Therapy Exercises/Activities: PROM of the left shoulder. Manual resistance for isometric shld flex, ext, abd, add, IR, and ER. Wand for overhead flexion and chest press. Clasped hands for overhead flexion. 1 /# cuff for short range flex/ext starting at 90 degrees. In sitting, AAROM into flexion, scaption, abd , and retraction. Wand for biceps curl, assisted flexion, forward chest press. Began overhead shoulder pulleys. Total minutes of Exercise: 42mins Manual Therapy: NA HOME EXERCISE PROGRAM: pt given written HEP including isometric shld flex/ext, abd/add, as well as AROM elbow flex/ext - Objective Findings Observations,measurements,etc.: Active left shoulder flexion 148-150 degrees. - Charges Timed Code Treatment Minutes: 42mins Total Treatment Time: 57mins Procedures billed for this date of service:: HP, EX3 Assessment: Patient progressing with ROM and light strengthening. Patient Education: Body/Joint mechanics, Home Exercise Program, Home Safety, Activity Modification Patient demonstrates compliance with HEP?: Yes Short Term Goals Goal #1: pt independent with initial HEP Goal to be met by: 05/11/18 Progress towards Goal:: Met Goal #2: Improve L shld flex 110, abd90, ER 35 AAROM Goal to be met by: 05/11/18 Progress towards Goal:: Partially Met Comments:: Needs to increase abduction Goal #3: Improve strength L shld 3/5 Goal to be met by: 05/11/18 Usp Goals Goal #1: Improve UE functional score 25% Goal to be met by: 06/01/18 Goal #2: Improve L shld AROM flex 140 abd 110, ER 45 Goal to be met by: 06/01/18 Goal #3: pt able to perform normal daily activities without restrictions Goal to be met by: 06/01/18 Progress towards goal: Progressing Plan Dates of Lead Fabricator Goals: 06/01/18 Expiration date of current Insurance Approval:: 06/01/18 PLAN: Progress exercise to increase ROM and strength to increase functional use of the left UE.
--- NOTE | 2018-05-01 16:14 | RS.OPPTDN ---
Subjective Date of Note: 05/01/18 Visit #: 5 Number of visits approved by Insurance: NA Date of Evaluation: 04/20/18 Payer Source: MEDICARE Treatment Diagnosis: s/p rotator cuff repair, pain in L shld Current Subjective/complaints:: Patient reports she is making good progress with active motion, but is limited with several daily activities. *Precautions: n/a Pain Assessment - Pain Description Pain Location: left shoulder, upper arm Pain Description: soreness Current Pain Intensity: mild Interventions - Exercise/Activities/Manual Therapy Exercises/Activities: PROM of the left shoulder. Manual resistance for isometric shld flex, ext, abd, add, IR, and ER. Wand for overhead flexion and chest press. Red theraband for resisted shoulder flexion and extension with wand. Ball for isometric IR and overhead press. In sitting, AAROM into flexion , scaption, abd, and retraction. Wand for biceps curl, flexion, forward chest press. Green theraband for resisted scap retraction with wand. Ball on the wall with both hands and then with left only. Overhead shoulder pulleys. Total minutes of Exercise: 43mins Manual Therapy: NA HOME EXERCISE PROGRAM: pt given written HEP including isometric shld flex/ext, abd/add, as well as AROM elbow flex/ext - Charges Timed Code Treatment Minutes: 43mins Total Treatment Time: 44mins Procedures billed for this date of service:: EX3 Assessment: Patient progressing with strengthening and with AAROM above shoulder height. Patient Education: Body/Joint mechanics, Home Exercise Program, Activity Modification Patient demonstrates compliance with HEP?: Yes Short Term Goals Goal #1: pt independent with initial HEP Goal to be met by: 05/11/18 Progress towards Goal:: Met Goal #2: Improve L shld flex 110, abd90, ER 35 AAROM Goal to be met by: 05/11/18 Progress towards Goal:: Partially Met Goal #3: Improve strength L shld 3/5 Goal to be met by: 05/11/18 Progress towards Goal:: Progressing Six Pack Loader Operator Goals Goal #1: Improve UE functional score 25% Goal to be met by: 06/01/18 Goal #2: Improve L shld AROM flex 140 abd 110, ER 45 Goal to be met by: 06/01/18 Goal #3: pt able to perform normal daily activities without restrictions Goal to be met by: 06/01/18 Progress towards goal: Progressing Progress towards goal: Progressing Plan Dates of Six Pack Loader Operator Goals: 06/01/18 Expiration date of current Insurance Approval:: 06/01/18 PLAN: Progress with AROM and strengthening to increase functional use of the left UE.
--- NOTE | 2018-05-03 16:20 | RS.OPPTDN ---
Subjective Date of Note: 05/03/18 Visit #: 6 Number of visits approved by Insurance: na Date of Evaluation: 04/20/18 Payer Source: MEDICARE Treatment Diagnosis: s/p rotator cuff repair, pain in L shld Current Subjective/complaints:: Patient reports she is pleased with progress and feels she is ready for discharge with HEP. States she is doing most ADL's and feels she will continue to progress. *Precautions: n/a Pain Assessment - Pain Description Pain Location: left shoulder and upper arm Pain Description: soreness Current Pain Intensity: 0 Interventions - Exercise/Activities/Manual Therapy Exercises/Activities: Overhead shoulder pulleys, progressing abduction. PROM of the left shoulder. Manual resistance for isometric shld flex, ext, abd, add, IR , and ER. Wand for overhead flexion and chest press. Red theraband for resisted shoulder flexion and extension with wand. Ball for isometric IR, overhead press , and triceps press. Green theraband resisted shoulder flexion and ext with wand. In sitting, AAROM into flexion, scaption, abd, and retraction. Wand for biceps curl, flexion, forward chest press. Green theraband for resisted scap retraction with wand. Ball on the wall with both hands and then with left only. Reviewed FOM and finalized discharge instructions. Total minutes of Exercise: 43mins Manual Therapy: NA HOME EXERCISE PROGRAM: pt given written HEP including isometric shld flex/ext, abd/add, as well as AROM elbow flex/ext - Charges Timed Code Treatment Minutes: 43mins Total Treatment Time: 44mins Procedures billed for this date of service:: EX3 Assessment: Patient has met 4 of 6 treatment goals. Demos AROM and MMT WFL. She is independent with HEP and feels she is ready for discharge. Patient Education: Home Exercise Program, Home Safety, Activity Modification Comments: Patient education to review and finalize all safety instruction and HEP. Patient demonstrates compliance with HEP?: Yes Short Term Goals Goal #1: pt independent with initial HEP Goal to be met by: 05/11/18 Progress towards Goal:: Met Goal #2: Improve L shld flex 110, abd90, ER 35 AAROM Goal to be met by: 05/11/18 Progress towards Goal:: Met Goal #3: Improve strength L shld 3/5 Goal to be met by: 05/11/18 Progress towards Goal:: Met Pump Runner Goals Goal #1: Improve UE functional score 25% Goal to be met by: 06/01/18 Progress towards goal: Met Comments: 15% Goal #2: Improve L shld AROM flex 140 abd 110, ER 45 Goal to be met by: 06/01/18 Progress towards goal: Partially Met Comments: ER to approx 40deg Goal #3: pt able to perform normal daily activities without restrictions Goal to be met by: 06/01/18 Progress towards goal: Partially Met Comments: Performing most ADL's Plan Dates of Care Home Goals: 06/01/18 Expiration date of current Insurance Approval:: 06/01/18 PLAN: Discharge with HEP.
--- NOTE | 2018-05-14 10:14 | RS.OPPTDC ---
Date of Discharge: 05/03/18 Date of Evaluation: 04/20/18 Number of Visits: 6 Treatment Diagnosis: s/p rotator cuff repair, pain in L shld Current Level of Function: AROM L shld flex 150 abd 121 ER 40, AAROM flex 157. MMT 3+/5 in given ROM. Met 4 of 6 goals. Current Complaints/Gains: pt reports she is pleased with her progress and feels she is ready for DC with HEP. States she is doing most ADL's without difficulty. Functional Outcome Measure UE Functional Index: 68 (improved from 48 on eval) - G Codes & Severity Modifier G Codes & Modifier: n/a Source of G Code score: n/a Observation - Observation Posture: Forward Head, Rounded Shoulders Handedness: Right Gait - Gait Pattern General Gait Pattern Observation: No Deviations/Normal Interventions - Exercise/Activities/Manual Therapy Exercises/Activities: na Manual Therapy: NA HOME EXERCISE PROGRAM: pt given written HEP including isometric shld flex/ext, abd/add, as well as AROM elbow flex/ext - Charges Timed Code Treatment Minutes: n/a Total Treatment Time: n/a Procedures billed for this date of service:: n/a Assessment Assessment: pt has met 4 out of 6 goals. pt has made significant improvement with ROM as well as strength. Patient Education: Home Exercise Program, Education of Plan of Care Rehab Potential: Good Short Term Goals Goal #1: pt independent with initial HEP Goal to be met by: 05/11/18 Progress towards Goal:: Met Goal #2: Improve L shld flex 110, abd90, ER 35 AAROM Goal to be met by: 05/11/18 Progress towards Goal:: Met Goal #3: Improve strength L shld 3/5 Goal to be met by: 05/11/18 Progress towards Goal:: Met Laundry Operator Finishing Goals Goal #1: Improve UE functional score 25% Goal to be met by: 06/01/18 Progress towards goal: Met Goal #2: Improve L shld AROM flex 140 abd 110, ER 45 Goal to be met by: 06/01/18 Progress towards goal: Partially Met Comments: L shld flex 150, abd 121, ER 40 Goal #3: pt able to perform normal daily activities without restrictions Goal to be met by: 06/01/18 Progress towards goal: Progressing Comments: pt continues to be limited with strength and ROM Goal #4: . Plan Comments: pt has met 4 out of 6 goals. DC at pt request due to good progress.
== END 2018-05-20 23:59 ==
PROVIDERS: ATTEND Orthopaedic Surgery
DX: M25.512 Pain in left shoulder (principal); Z98.890 Other specified postprocedural states

== ENCOUNTER 2018-10-18 10:00 | Outpatient (RCR) | payer OTHER ==
--- NOTE | 2018-10-10 15:37 | RS.OPPTEV2 ---
Date of Note: 10/10/18 Visit #: 1 Number of visits approved by Insurance: n/a Date of Evaluation: 10/10/18 Payer Source: MEDICARE Surgery Performed?: Yes (R TKR 09/28/18) Treatment Diagnosis: OA R knee s/p R TKR History of Condition/Mechanism of Injury:: pt has had a long history of R knee pain. pt underwent R TKR 09/28/18. Prior Level of Function.....Patient was independent with: ADL's, Self Care, Work /Vocation (works for [employer]. ), Caregiving, Ambulation/Mobility, Community Integration/Access Level of Function: pt amb with significant pain prior to surgery. pt was independent with ADL's Functional Limitations: Standing, Bending, Squatting, Ambulation, Community Access/Integration Current Subjective/complaints:: pt states that she had home health for 1 week and she had already graduated from the cane. 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 Surgical History: Cholecystectomy, Hysterectomy Surgical History Comments:: hernia repair, L rotator cuff repair Smoking Status: Never smoker Hx Home Medications: pt did not bring list of meds this visit. Patient's Goals: Return to amb without pain. Pain Assessment - Pain Description Pain Location: R knee Pain Description: Tightness, Aching Current Pain Intensity: 3/10 Functional Outcome Measure LE Functional Scale: 38 - G Codes & Severity Modifier G Codes & Modifier: n/a Source of G Code score: n/a Observation - Observation Inspection: pt presents with edema R knee, no exudate noted or erythema. Posture: Forward Head, Rounded Shoulders Handedness: Right Girth Measurement Lower: R knee 43.7cm. L knee 37.2 cm Gait - Gait Pattern Gait Comments: pt amb without AD with decreased RLE heel strike/toe off as well as antalgic gait. General Range of Motion: BUE WFL's. LLE WFL's. RLE hip and ankle WFL's Muscle Strength: BUE 5/5. LLE 5/5. RLE hip flex 4-/5, ankle DF/PF 4-/5 Knee ROM: Left WFL's Knee Muscle Strength: Left WFL's - Right Knee ROM Right Knee Extension: -9 Right Knee Flexion: 101 (AROM in sitting, 92 supine) Knee ROM Limitations: Soft Tissue Tightness, Muscle Weakness, Pain - Right Knee Strength Right Knee Extension: 3- Fair- Right Knee Flexion: 3- Fair- - Special Tests Comments: special tests n/t due to recent R TKR Palpation Palpation Findings: Tenderness Comments:: pt with tenderness noted at R knee joint line Sensation - Sensation Right Upper Extremity: Intact/Normal Left Upper Extremity: Intact/Normal Right Lower Extremity: Intact/Normal Left Lower Extremity: Intact/Normal Balance - Sitting Balance Static Sitting Balance: Normal Dynamic Sitting Balance: Normal - Standing Balance Static Standing Balance: Good Dynamic Standing Balance: Fair Interventions - Exercise/Activities/Manual Therapy Exercises/Activities: pt performed RLE QS, HS, SAQ, SLR, hip abd, LAQ. Gentle knee hang with bolster under foot. Total minutes of Exercise: 16 Manual Therapy: NA HOME EXERCISE PROGRAM: pt has written HEP from home health - Charges Timed Code Treatment Minutes: 44 Total Treatment Time: 49 Procedures billed for this date of service:: eval med, ex EVALUATION COMPLEXITY LEVEL EVALUATION COMPLEXITY LEVEL: HISTORY: Medium, EXAM OF BODY SYSTEMS: Medium, CLINICAL PRESENTATION: Medium, CLINICAL DECISION MAKING: Medium Assessment Assessment: pt presents with decreased R knee ROM, edema, pain as well as decreased heel strike/toe off gait pattern. Feel pt would benefit from skilled PT for therex for strengthening, stretching as well as gait training and modalities to improve gait sequencing and decrease pain. Patient Education: Home Exercise Program, Education of Plan of Care Rehab Potential: Good Short Term Goals Goal #1: pt independent with initial HEP Goal to be met by: 10/24/18 Goal #2: Improve R knee ROM flex 108 ext -7 Goal to be met by: 10/24/18 Goal #3: Improve R LE strength 4 To 4+/5 Goal to be met by: 10/24/18 Goal #4: pt report pain < 3/10 at rest Goal to be met by: 10/24/18 Alf Goals Goal #1: pt demonstrate improved heel strike/toe off during gait. Goal to be met by: 11/09/18 Goal #2: Improve R knee ROM flex 110 ext 0 Goal to be met by: 11/09/18 Goal #3: pt able to perform normal daily activities without restrictions Goal to be met by: 11/09/18 Goal #4: . Plan - Treatment to be Provided Procedures: Therapeutic Exercises, Therapeutic Activity, Gait Training, Patient Education Modalities: Electrical Stimulation, Cryotherapy, Hot Packs - Treatment Plan Frequency: 2-3 X week Duration: 4 weeks Dates of Formal Waiter/Waitress Goals: 11/09/18 Expiration date of current Insurance Approval:: n/a - Treatment Code (1) Right knee pain Code(s): M25.561 - PAIN IN RIGHT KNEE Qualifiers: Chronicity: acute Qualified Code(s): M25.561 - Pain in right knee (2) Aftercare following knee joint replacement surgery Code(s): Z47.1 - AFTERCARE FOLLOWING JOINT REPLACEMENT SURGERY; Z96.659 - PRESENCE OF UNSPECIFIED ARTIFICIAL KNEE JOINT Qualifiers: Laterality: right Qualified Code(s): Z47.1 - Aftercare following joint replacement surgery; Z96.651 - Presence of right artificial knee joint (3) Stiffness of knee joint Qualifiers: Laterality: right Qualified Code(s): M25.661 - Stiffness of right knee, not elsewhere classified (4) Joint effusion of knee Qualifiers: Laterality: right Qualified Code(s): M25.461 - Effusion, right knee (5) Gait abnormality Code(s): R26.9 - UNSPECIFIED ABNORMALITIES OF GAIT AND MOBILITY
--- NOTE | 2018-10-12 10:52 | RS.OPPTDN ---
Subjective Date of Note: 10/12/18 Visit #: 2 Number of visits approved by Insurance: n/a Date of Evaluation: 10/10/18 Payer Source: MEDICARE Treatment Diagnosis: OA R knee s/p R TKR Current Subjective/complaints:: pt states that she is not feeling as well today. States she wants to get better LEA. *Precautions: n/a Pain Assessment - Pain Description Pain Location: R knee Pain Description: Aching Current Pain Intensity: 2 - Heat/Cryotherapy Treatment: Cryotherapy Comments:: R knee after exercise Interventions - Exercise/Activities/Manual Therapy Exercises/Activities: pt performed QS, HS, SAQ, SLR, hip abd/add, LAQ 2 sets of 10 reps. pt also rode bike x 5 mins, leg press 30# 2 sets of 10 reps. pt performed standing: R LE hip flex, hamstring curl, short squats 2 sets of 10 reps. Gait training: demonstrated with patient proper heel strike/toe off gait pattern. pt can correct with verbal cues but returns quickly to antalgic pattern circumducting hip to advance RLE. Total minutes of Exercise: 32 Manual Therapy: NA HOME EXERCISE PROGRAM: pt given written HEP including standing hip flex, hamstring curls, and short squats - Charges Timed Code Treatment Minutes: 32 Total Treatment Time: 45 Procedures billed for this date of service:: ex2, cp Assessment: pt progressing well with improved ROM this visit as well as improved endurance. pt continues to require cues to correct heel strike/toe off gait pattern. Patient Education: Home Exercise Program, Education of Plan of Care Patient demonstrates compliance with HEP?: Yes Short Term Goals Goal #1: pt independent with initial HEP Goal to be met by: 10/24/18 Progress towards Goal:: Progressing Goal #2: Improve R knee ROM flex 108 ext -7 Goal to be met by: 10/24/18 (flex 107) Progress towards Goal:: Progressing Goal #3: Improve R LE strength 4 To 4+/5 Goal to be met by: 10/24/18 Progress towards Goal:: Progressing Goal #4: pt report pain < 3/10 at rest Goal to be met by: 10/24/18 (this visit 2/10 ) Progress towards Goal:: Progressing [facility] Goals Goal #1: pt demonstrate improved heel strike/toe off during gait. Goal to be met by: 11/09/18 Goal #2: Improve R knee ROM flex 110 ext 0 Goal to be met by: 11/09/18 Goal #3: pt able to perform normal daily activities without restrictions Goal to be met by: 11/09/18 Goal #4: . Plan Dates of [facility] Goals: 11/09/18 Expiration date of current Insurance Approval:: n/a PLAN: plan to continue with therex for strengthening, stretching as well as modalities to decrease pain and improve ROM. May add weights on next visit.
--- NOTE | 2018-10-16 16:15 | RS.OPPTDN ---
Subjective Date of Note: 10/16/18 Visit #: 3 Number of visits approved by Insurance: na Date of Evaluation: 10/10/18 Payer Source: MEDICARE Treatment Diagnosis: OA R knee s/p R TKR Current Subjective/complaints:: Patient reports continued heat swelling right knee, but states she is progressing well overall. States she is working on HEP. *Precautions: n/a Pain Assessment - Pain Description Pain Location: right knee Pain Description: Tightness Current Pain Intensity: mild to mod - Heat/Cryotherapy Treatment: Cryotherapy (Ended with CP to the right knee joint [id number]. Patient in supine. ) Interventions - Exercise/Activities/Manual Therapy Exercises/Activities: Stationary bike x5mins(not in direct time). Assisted stretching right hamstrings, heelcords, and right knee flex/ext. Right LE Exercises: Performed QS, HS, SLR, hip abd, hip add. Isometric hip add and isometric ankle inversion, both with ball. Yellow band ham curl and ankle df. Add 2 1/2# to SAQ. In standing LAQ with 3# and ham curl with yellow tband. Leg press 30# 3s/10reps. Standing right hip flex and hamstring curl. Total minutes of Exercise: 41mins/46mins Manual Therapy: NA HOME EXERCISE PROGRAM: pt given written HEP including standing hip flex, hamstring curls, and short squats - Charges Timed Code Treatment Minutes: 41mins Total Treatment Time: 56mins Procedures billed for this date of service:: EX3, CP Assessment: Patient progressing well with strengthening and ROM of the right knee. Patient Education: Body/Joint mechanics, Home Exercise Program Patient demonstrates compliance with HEP?: Yes Short Term Goals Goal #1: pt independent with initial HEP Goal to be met by: 10/24/18 Progress towards Goal:: Progressing Goal #2: Improve R knee ROM flex 108 ext -7 Goal to be met by: 10/24/18 (flex 107) Progress towards Goal:: Progressing Goal #3: Improve R LE strength 4 To 4+/5 Goal to be met by: 10/24/18 Progress towards Goal:: Progressing Goal #4: pt report pain < 3/10 at rest Goal to be met by: 10/24/18 (this visit 04/01 ) Progress towards Goal:: Progressing [facility] Goals Goal #1: pt demonstrate improved heel strike/toe off during gait. Goal to be met by: 11/09/18 Goal #2: Improve R knee ROM flex 110 ext 0 Goal to be met by: 11/09/18 Goal #3: pt able to perform normal daily activities without restrictions Goal to be met by: 11/09/18 Goal #4: . Plan Dates of [facility] Goals: 11/09/18 Expiration date of current Insurance Approval:: 11/09/18 PLAN: Progress with ROM and strengthening of the right knee to improve gait and functional activity level.
--- NOTE | 2018-10-18 12:00 | RS.OPPTDN ---
Subjective Date of Note: 10/18/18 Visit #: 4 Number of visits approved by Insurance: na Date of Evaluation: 10/10/18 Payer Source: MEDICARE Treatment Diagnosis: OA R knee s/p R TKR Current Subjective/complaints:: Patient reports significant improvement in pain and flexibility of the right knee after stretching last session. States she is using [employer] salt towel soaks, ice, and consistently working on HEP. *Precautions: n/a Pain Assessment - Pain Description Pain Location: right knee Pain Description: Tightness, Dull, Aching Current Pain Intensity: mild to mod Interventions - Exercise/Activities/Manual Therapy Exercises/Activities: Stationary bike x5mins(not in direct time). Assisted stretching right hamstrings, heelcords, and right knee flex/ext. Right LE Exercises: Performed QS, HS, hip abd, hip add. Added 1# to SLR and SLR/VMO, 2s/ 10reps each. Isometric hip add and isometric ankle inversion, both with ball. Yellow band ham curl, ankle df, hip add and hip abd in hook-lying. Increased to 3# to SAQ. In standing LAQ with 3# and ham curl with yellow tband. In sitting, LAQ 3#, double LE LAQ with 1# to right and ball between feet, green tband ham curl. Total minutes of Exercise: 32mins Manual Therapy: 10mins soft tissue massage and lymphatic drainage strokes to the right calf, knee, and quads. Total minutes of Manual Therapy: 10mins HOME EXERCISE PROGRAM: pt given written HEP including standing hip flex, hamstring curls, and short squats - Charges Timed Code Treatment Minutes: 42mins Total Treatment Time: 45mins Procedures billed for this date of service:: EX2, MT Assessment: Patient progressing with exercise and demos improved gait pattern. Patient Education: Body/Joint mechanics, Home Exercise Program, Activity Modification Patient demonstrates compliance with HEP?: Yes Short Term Goals Goal #1: pt independent with initial HEP Goal to be met by: 10/24/18 Progress towards Goal:: Met Goal #2: Improve R knee ROM flex 108 ext -7 Goal to be met by: 10/24/18 (flex 107) Progress towards Goal:: Progressing Goal #3: Improve R LE strength 4 To 4+/5 Goal to be met by: 10/24/18 Progress towards Goal:: Progressing Goal #4: pt report pain < 3/10 at rest Goal to be met by: 10/24/18 (this visit 04/01 ) Progress towards Goal:: Progressing [employer] Goals Goal #1: pt demonstrate improved heel strike/toe off during gait. Goal to be met by: 11/09/18 Progress towards goal: Partially Met Goal #2: Improve R knee ROM flex 110 ext 0 Goal to be met by: 11/09/18 Progress towards goal: Progressing Goal #3: pt able to perform normal daily activities without restrictions Goal to be met by: 11/09/18 Progress towards goal: Progressing Goal #4: . Plan Dates of [employer] Goals: 11/09/18 Expiration date of current Insurance Approval:: 11/09/18 PLAN: Continue to progress with functional activity level and return to PLOF.
== END 2018-10-20 23:59 ==
PROVIDERS: ATTEND Orthopaedic Surgery
DX: M17.11 Unilateral primary osteoarthritis, right knee (principal); M25.561 Pain in right knee; Z47.1 Aftercare following joint replacement surgery; Z96.651 Presence of right artificial knee joint; M25.661 Stiffness of right knee, not elsewhere classified; M25.461 Effusion, right knee; R26.9 Unspecified abnormalities of gait and mobility